=== PATIENT | male | born 1950 | race Caucasian/White ===

== ENCOUNTER 2024-05-14 15:19 | Emergency (ER) | payer MEDICARE ==
[~2024-05-14] VITALS: Ht 180.3 cm; Wt 95.5 kg
[2024-05-14 15:26] VITALS: TEMP 98.9
[2024-05-14] MEDS ORDERED: prostate med PO (15:30)
[2024-05-14] MEDS ORDERED: abx PO (15:30)
[2024-05-14] MEDS ORDERED: TAMS0.4C94 PO (15:30)
[2024-05-14] MEDS ORDERED: LEVO100 PO (15:30)
[2024-05-14 15:59] LABS: BASOPHILS % (AUTO) 0.3 % (0.0-2.0); EOSINOPHILS % (AUTO) 1.8 % (1.0-6.0); HEMATOCRIT 39.2 % (41-53); HEMOGLOBIN 13.2 g/dL (13.5-17.5); LYMPHOCYTES # (AUTO) 1.6 K/uL (1.0-4.8); LYMPHOCYTES % (AUTO) 18.9 % (22.0-44.0); MEAN CORPUSCULAR HEMOGLOBIN 34.1 pg (26.0-34.0); MEAN CORPUSCULAR HGB CONC 33.8 G/dL (31.0-37.0); MEAN CORPUSCULAR VOLUME 101 fL (80-100); MONOCYTES # (AUTO) 0.4 K/uL (0.1-1.0); MONOCYTES % (AUTO) 5.4 % (2.0-9.0); NEUTROPHILS # (AUTO) 6.2 K/uL (1.8-7.7); NEUTROPHILS % (AUTO) 73.6 % (40.0-70.0); PLATELET COUNT (AUTO) 235 K/uL (150-450); RED BLOOD CELL COUNT(AUTO) 3.88 MIL/uL (4.50-5.90); RED CELL DISTRIBUTION WIDTH 15.9 % (11.5-14.5); WHITE BLOOD COUNT (AUTO) 8.4 K/uL (4.5-11.0)
[2024-05-14 16:16] LABS: ANION GAP 12 mmol/L (8-16); CALCIUM, TOTAL 10.5 mg/dL (8.8-10.5); CARBON DIOXIDE 26 mmol/L (22-29); CHLORIDE 102 mmol/L (98-107); CREATININE 1.01 mg/dL (0.60-1.30); GLOMERULAR FILTR. RATE CALC > 60 mL/min (>60); GLUCOSE,RANDOM 143 mg/dL (70-110); POTASSIUM 3.8 mmol/L (3.5-5.1); SODIUM SERUM 140 mmol/L (136-145); UREA NITROGEN, BLOOD 10 mg/dL (7-18)
[2024-05-14 16:17] LABS: LIPASE 24 U/L (16-77); TROPONIN I-HIGH SENSITIVITY 13 ng/L (<76)
[2024-05-14] MEDS: SODIUM PHOSPHATE,MONO-DIBASIC 133 ML ENEMA PR ONE (19:50)
[2024-05-14 20:13] VITALS: BP 142/89; PULSE 96; RESP 16; O2SAT 99
[2024-05-14] MEDS ORDERED: POLY17PO62 PO (20:43)
== END 2024-05-14 21:38 | disposition home or self-care (01) ==
LOC: EMS 15:19
DX: K59.00 Constipation, unspecified (principal); R10.30 Lower abdominal pain, unspecified; I10 Essential (primary) hypertension; E03.9 Hypothyroidism, unspecified; Z90.49 Acquired absence of other specified parts of digestive tract
CPT/HCPCS: 74176; 80048; 83690; 84484; 85025; 99284

== ENCOUNTER 2024-11-13 23:42 | Emergency (ER) | payer MEDICARE ==
[~2024-11-13] VITALS: Ht 172.7 cm; Wt 90.0 kg
[~2024-11-13 23:42] MED LIST: BISA10SU11 PR; LEVO100 PO; POLY17PO62 PO; TAMS0.4C94 PO; abx PO; prostate med PO
[2024-11-14] MEDS: SODIUM CHLORIDE 0.9% 1,000 ML IV ONE (00:15)
[2024-11-14 00:25] LABS: BASOPHILS % (AUTO) 0.3 % (0.0-2.0); EOSINOPHILS % (AUTO) 0.4 % (1.0-6.0); HEMATOCRIT 35.8 % (41-53); HEMOGLOBIN 12.2 g/dL (13.5-17.5); LYMPHOCYTES % (AUTO) 19.8 % (22.0-44.0); MEAN CORPUSCULAR HEMOGLOBIN 36.4 pg (26.0-34.0); MEAN CORPUSCULAR HGB CONC 34.1 G/dL (31.0-37.0); MEAN CORPUSCULAR VOLUME 107 fL (80-100); MONOCYTES # (AUTO) 0.6 K/uL (0.1-1.0); MONOCYTES % (AUTO) 5.7 % (2.0-9.0); NEUTROPHILS # (AUTO) 7.4 K/uL (1.8-7.7); NEUTROPHILS % (AUTO) 73.8 % (40.0-70.0); PLATELET COUNT (AUTO) 217 K/uL (150-450); RED BLOOD CELL COUNT(AUTO) 3.35 MIL/uL (4.50-5.90); RED CELL DISTRIBUTION WIDTH 16.1 % (11.5-14.5)
[2024-11-14 00:31] LABS: CALCIUM, TOTAL 9.7 mg/dL (8.8-10.5); CREATININE 1.38 mg/dL (0.60-1.30); POTASSIUM 3.9 mmol/L (3.5-5.1)
[2024-11-14 00:37] VITALS: TEMP 97.905272
[2024-11-14 00:37] LABS: ALBUMIN 4.3 g/dL (3.4-5.0); BILIRUBIN,DIRECT 0.9 mg/dL (0.00-0.20); BILIRUBIN,TOTAL 2.9 mg/dL (0.1-1.0); TOTAL PROTEIN, SERUM 7.5 g/dL (6.4-8.2)
[2024-11-14] MEDS: MAGNESIUM SULFATE 4 GM/WATER 100 ML IV ONE (01:01)
[2024-11-14 04:16] VITALS: BP 136/93; PULSE 88; RESP 18; O2SAT 99
[2024-11-14] MEDS: PANTOPRAZOLE SODIUM 40 MG DR TABLET PO ONE (05:22)
[2024-11-14] MEDS ORDERED: PANT-31 PO (05:23)
[2024-11-14] MEDS ORDERED: ONDA-104 PO (05:23)
== END 2024-11-14 05:41 | disposition home or self-care (01) ==
LOC: EMS 23:42
DX: K29.70 Gastritis, unspecified, without bleeding (principal); R11.2 Nausea with vomiting, unspecified; E03.9 Hypothyroidism, unspecified; E78.5 Hyperlipidemia, unspecified; I10 Essential (primary) hypertension; Z90.49 Acquired absence of other specified parts of digestive tract; Z79.899 Other long term (current) drug therapy
CPT/HCPCS: 99284; 80048; 80076; 83690; 83735; 85025; 36415; 96365; 96366; 96361; 93005; G0480; J7030; J3475